=== PATIENT | female | born 1995 | race Caucasian/White ===

== ENCOUNTER 2024-08-31 00:34 | Emergency (ER) | payer SELFPAY ==
[~2024-08-31] VITALS: Ht 165.1 cm; Wt 62.0 kg
[2024-08-31 00:40] VITALS: O2SAT 99
[2024-08-31 01:03] VITALS: BP 119/74; PULSE 92; RESP 18; TEMP 36.5; O2SAT 99
[2024-08-31] MEDS ORDERED: BENZ100C86 MT (03:40)
== END 2024-08-31 03:48 | disposition home or self-care (01) ==
LOC: ER 00:34
DX: J06.9 Acute upper respiratory infection, unspecified (principal); B97.89 Other viral agents as the cause of diseases classified elsewhere; Z79.899 Other long term (current) drug therapy
CPT/HCPCS: 71045; 99283